=== PATIENT | female | born 1955 | race Caucasian/White ===

== ENCOUNTER 2017-03-25 16:16 | Inpatient (IN) | payer MEDICAID ==
[2017-03-25] MEDS ORDERED: [UNRECOGNIZED DRUG - OTHER] PO PRN (18:29)
[2017-03-25] MEDS ORDERED: XYLITOL PO PRN (18:29)
[2017-03-25] MEDS ORDERED: Mirtazapine 15 MG Tab PO PRN (18:29)
[2017-03-25] MEDS ORDERED: Acetaminophen 325 MG Tab PO PRN (18:41)
[2017-03-25] MEDS ORDERED: Polyethylene Glycol 3350 Powder 510 GM Bot PO PRN (18:41)
[2017-03-25] MEDS ORDERED: OLANZAPINE 10 MG PO SCH (20:00)
[2017-03-25] MEDS ORDERED: OLANZapine 5 MG Tab PO SCH (20:00)
[2017-03-25] MEDS ORDERED: Latanoprost 0.005% Ophth Soln 2.5 ML Bottle EYEBOTH SCH (20:00)
[2017-03-25] MEDS: traMADol 50 MG Tab PO PRN (21:09)
[2017-03-25] MEDS: Methocarbamol 750 MG Tab PO SCH (22:00)
[2017-03-25] MEDS: Dorzolamide/Timolol 2%-0.5% Ophth Soln 10 ML Bottle EYEBOTH SCH (22:00)
[2017-03-25] MEDS: ClonazePAM 0.5 MG Tab PO PRN (22:00)
[2017-03-26] MEDS: Insulin Glargine,Human Rec. Analog 100 Units/ML 3 ML Pen SUBCUT SCH ×2 (00:01→21:53)
[2017-03-26] MEDS: Levothyroxine 112 MCG Tab PO SCH (07:31)
[2017-03-26] MEDS: EXENATIDE 10 MCG SQ SCH ×2 (07:37→20:36)
[2017-03-26] MEDS: Venlafaxine 150 MG Cap.ER PO SCH (08:29)
[2017-03-26] MEDS: Dorzolamide/Timolol 2%-0.5% Ophth Soln 10 ML Bottle EYEBOTH SCH ×2 (08:29→20:38)
[2017-03-26] MEDS: Methocarbamol 750 MG Tab PO SCH ×3 (08:30→20:36)
[2017-03-26] MEDS: busPIRone 10 MG Tab PO SCH ×2 (08:30→20:43)
[2017-03-26] MEDS: Valsartan 160 MG Tab PO SCH (08:30)
[2017-03-26] MEDS: ClonazePAM 0.5 MG Tab PO PRN (08:31)
[2017-03-26] MEDS: traMADol 50 MG Tab PO PRN ×3 (08:35→20:36)
--- NOTE | 2017-03-26 08:45 | HP ---
HISTORY OF PRESENT ILLNESS: The patient was transferred here for rehab after hip surgery for avascular necrosis. She had her surgery done at [place] last week. She is doing quite well and is going to be placed on swing bed with followup by her primary care physician, Dr. Franklin. The patient has no complaints at this time. She does have a past medical history of avascular necrosis and depression issues, for which she is well controlled. AODM, elevated lipids, glaucoma, and hypertension. She is currently anticoagulated after her hip surgery. SOCIAL HISTORY: She is a recent nonsmoker, having stopped before her surgery. She lives at home with her mother and has very good social support. REVIEW OF SYSTEMS: CONSTITUTIONAL: The patient denies any fever, weight loss, or fatigue. EYES: No vision changes. ENT: No nose congestion, sore throat, or ear pain. CV: No chest pain or palpitations. RESPIRATORY: No cough, shortness of breath, or wheezing. GI: No nausea, vomiting, diarrhea, constipation, heartburn, or rectal bleeding. : No dysuria. MUSCULOSKELETAL: No joint discomfort except for her recent right hip where she had her surgery for avascular necrosis. No inflamed joints. No limitations of motion other than her right hip. SKIN: No rashes or sores. She does have toenail fungus, for which she is using topical Vicks. NEURO: She has no complaints of numbness, weakness, or headaches. PSYCH: She does have a history of depression, which is under control at this time. PHYSICAL EXAMINATION: GENERAL: Reveals a well-developed, well-nourished female. She is alert, she is oriented x3. She is in no acute distress. VITAL SIGNS: Upon admission show temperature 36.6, pulse ox of 95, pulse rate of 81, blood pressure 151/73. ASSESSMENT: Right hip replacement, status post avascular necrosis; history of controlled diabetes type 2; history of elevated cholesterol; history of elevated blood pressure; history of depression; and history of glaucoma. PLAN: The patient is admitted to the hospital for rehab after her hip surgery. She will be placed on swing bed and when she is able to manage on her own, she can be discharged to home where she does have good social followup. We will relook into some basic labs on her including a TSH and A1c, CBC, CMP, and magnesium as we do not have any recent lab work in her files. DIANNE/ANNA
[2017-03-26] MEDS ORDERED: Acetaminophen 325 MG Tab PO PRN (09:19)
[2017-03-26] MEDS ORDERED: Acetaminophen 650 MG Tab.ER PO PRN (09:20)
[2017-03-26] MEDS ORDERED: Latanoprost 0.005% Ophth Soln 2.5 ML Bottle EYEBOTH SCH (09:33)
[2017-03-26] MEDS: METFORMIN PO SCH (14:59)
[2017-03-26] MEDS: SAXAGLIPTIN PO SCH (14:59)
[2017-03-26] MEDS: Tuberculin, PPD 5 Units/0.1 ML 1 ML MDV IDERM ONE ×2 (15:08)
[2017-03-26] MEDS: Warfarin 5 MG Tab PO SCH (18:09)
[2017-03-26] MEDS: Latanoprost 0.005% Ophth Soln 2.5 ML Bottle EYEBOTH SCH (20:35)
[2017-03-26] MEDS: OLANZAPINE 2.5 MG PO SCH (20:39)
[2017-03-26] MEDS: OLANZAPINE 10MG TABLET PO SCH (20:39)
[2017-03-27] MEDS: EXENATIDE 10 MCG SQ SCH ×3 (07:30→17:10)
[2017-03-27] MEDS: traMADol 50 MG Tab PO PRN ×2 (07:51→21:15)
[2017-03-27] MEDS: busPIRone 10 MG Tab PO SCH ×2 (07:52→20:30)
[2017-03-27] MEDS: Dorzolamide/Timolol 2%-0.5% Ophth Soln 10 ML Bottle EYEBOTH SCH ×2 (07:53→20:31)
[2017-03-27] MEDS: Valsartan 160 MG Tab PO SCH (07:54)
[2017-03-27] MEDS: Venlafaxine 150 MG Cap.ER PO SCH (07:56)
[2017-03-27] MEDS: Methocarbamol 750 MG Tab PO SCH ×3 (07:57→20:29)
[2017-03-27] MEDS: SAXAGLIPTIN PO SCH ×3 (07:59→17:10)
[2017-03-27] MEDS: METFORMIN PO SCH ×3 (07:59→17:10)
[2017-03-27] MEDS: ClonazePAM 0.5 MG Tab PO PRN ×2 (08:49→21:22)
[2017-03-27] MEDS: Warfarin 5 MG Tab PO SCH (18:20)
[2017-03-27] MEDS: OLANZAPINE 10MG TABLET PO SCH (20:30)
[2017-03-27] MEDS: OLANZAPINE 2.5 MG PO SCH (20:30)
[2017-03-27] MEDS: Latanoprost 0.005% Ophth Soln 2.5 ML Bottle EYEBOTH SCH (20:31)
[2017-03-28] MEDS: EXENATIDE 10 MCG SQ SCH ×5 (07:30→17:41)
[2017-03-28] MEDS: traMADol 50 MG Tab PO PRN ×2 (07:46→20:55)
[2017-03-28] MEDS: ClonazePAM 0.5 MG Tab PO PRN ×2 (07:46→20:51)
[2017-03-28] MEDS: Levothyroxine 112 MCG Tab PO SCH ×2 (07:50)
[2017-03-28] MEDS: busPIRone 10 MG Tab PO SCH ×2 (07:51→20:57)
[2017-03-28] MEDS: Dorzolamide/Timolol 2%-0.5% Ophth Soln 10 ML Bottle EYEBOTH SCH ×2 (07:51→20:57)
[2017-03-28] MEDS: Valsartan 160 MG Tab PO SCH (07:52)
[2017-03-28] MEDS: Venlafaxine 150 MG Cap.ER PO SCH (07:52)
[2017-03-28] MEDS: Methocarbamol 750 MG Tab PO SCH ×3 (07:53→20:38)
[2017-03-28] MEDS: Insulin Glargine,Human Rec. Analog 100 Units/ML 3 ML Pen SUBCUT SCH ×2 (09:12→20:58)
[2017-03-28] MEDS: Warfarin 5 MG Tab PO SCH (17:28)
[2017-03-28] MEDS: SAXAGLIPTIN PO SCH (17:29)
[2017-03-28] MEDS: METFORMIN PO SCH (17:29)
[2017-03-28] MEDS: OLANZAPINE 2.5 MG PO SCH (20:53)
[2017-03-28] MEDS: OLANZAPINE 10MG TABLET PO SCH (20:53)
[2017-03-28] MEDS: Latanoprost 0.005% Ophth Soln 2.5 ML Bottle EYEBOTH SCH (20:57)
[2017-03-29] MEDS: Levothyroxine 112 MCG Tab PO SCH (06:41)
[2017-03-29] MEDS: EXENATIDE 10 MCG SQ SCH (07:31)
[2017-03-29] MEDS: traMADol 50 MG Tab PO PRN (08:19)
[2017-03-29] MEDS: Valsartan 160 MG Tab PO SCH (08:21)
[2017-03-29] MEDS: Methocarbamol 750 MG Tab PO SCH (08:21)
[2017-03-29] MEDS: Venlafaxine 150 MG Cap.ER PO SCH (08:21)
[2017-03-29] MEDS: busPIRone 10 MG Tab PO SCH (08:23)
[2017-03-29] MEDS: Dorzolamide/Timolol 2%-0.5% Ophth Soln 10 ML Bottle EYEBOTH SCH (08:24)
[2017-03-29 08:25] VITALS: BP 141/81
[2017-03-29] MEDS: ClonazePAM 0.5 MG Tab PO PRN (08:25)
--- NOTE | 2017-04-05 09:39 | PCM.DCSUM1 ---
Discharge Summary - Discharge Data Discharge Date: 03/29/17 Discharge Disposition: Home, Self-Care 01 Condition: Good - Patient Summary/Data Consults: Consultations 03/25/17 18:19 OT Evaluation and Treatment [CONS] Routine Please Evaluate and Treat. OT Reason for Consult: Strengthening This query below is only for informational purposes and is not editable. PT Evaluation and Treatment [CONS] Routine Please Evaluate and Treat. PT Reason for Consult: Post op Ortho Surgery This query below is only for informational purposes and is not editable. - Patient Instructions Diet: Usual Diet as Tolerated Activity: As Tolerated Notify Provider of: Fever, Increased Pain, Swelling and Redness, Drainage, Nausea and/or Vomiting - Discharge Plan Home Medications: Home Meds Exenatide [Byetta] 10 mcg SQ BID 03/25/17 [History] Insulin Glarg,Human.Rec.Analog [Lantus Solostar] 30 units INJECT BEDTIME [History] Latanoprost 2.5 ml OP BEDTIME 03/25/17 [History] Levothyroxine 112 mcg PO DAILY 03/25/17 [History] Lovastatin 20 mg PO DAILY 03/25/17 [History] Methocarbamol 750 mg PO TID 03/25/17 [History] Mirtazapine 7.5 mg PO BEDTIME PRN 03/25/17 [History] OLANZapine [Olanzapine] 2.5 mg PO BEDTIME 03/25/17 [History] OLANZapine [Olanzapine] 10 mg PO BEDTIME 03/25/17 [History] Saxagliptin HCl/Metformin HCl [Kombiglyze XR 5-1,000 MG] 1 tab PO DAILY [History] Valsartan [Diovan] 160 mg PO DAILY 03/25/17 [History] Venlafaxine [Effexor XR] 150 mg PO DAILY 03/25/17 [History] Xylitol/Antiseptic Combo No.6 [Salese Soft Lozenge] 1 tab PO TID PRN 03/25/17 [ History] Acetaminophen [Tylenol Arthritis Pain] 650 mg PO Q6H PRN #0 tab.er 03/29/17 [Rx] ClonazePAM [KlonoPIN] 0.5 mg PO TID PRN #0 tablet 03/29/17 [Rx] Dorzolamide/Timolol [Cosopt 2%-0.5% Ophth Soln] 0 - 1 ml EYEBOTH BID bottle [Rx] Non-Formulary Medication [NF Drug] 1 each PO BEDTIME each 03/29/17 [Rx] Non-Formulary Medication [NF Drug] 1 each PO BEDTIME each 03/29/17 [Rx] Warfarin [Coumadin] 5 mg PO DAILY@1800 tablet 03/29/17 [Rx] busPIRone [Buspar] 10 mg PO DAILY tablet 03/29/17 [Rx] busPIRone [Buspar] 20 mg PO BEDTIME tablet 03/29/17 [Rx] - Discharge Summary/Plan Comment DC Time >30 min.: Yes Discharge Summary/Plan Comment: Counseled on f/u with Orthopedics and clinic. Discussed monitoring for signs of infection or other concerns. Continue with PT/OT outpatient. F/u as directed. - Patient Data Vitals - Most Recent: Last Vital Signs Temp 36.9 C 03/29/17 10:00 Pulse 78 03/29/17 10:00 Resp 16 03/29/17 10:00 BP 141/81 H 03/29/17 10:00 Pulse Ox 97 03/29/17 10:00 Weight - Most Recent: 90.718 kg Med Orders - Current: Current Medications Discontinued Medications Acetaminophen (Tylenol) 650 mg PO Q4H PRN PRN Reason: Pain Last Admin: 03/26/17 05:51 Dose: 650 mg Acetaminophen (Tylenol Arthritis Pain) 650 mg PO Q6H PRN PRN Reason: MILD PAIN Buspirone HCl (Buspar) 10 mg PO DAILY COUNTS INCLUDE 234 BEDS AT THE [facility] Last Admin: 03/29/17 08:23 Dose: 10 mg Buspirone HCl (Buspar) 20 mg PO BEDTIME VINNY Last Admin: 03/28/17 20:57 Dose: 20 mg Clonazepam (Klonopin) 0.5 mg PO TID PRN PRN Reason: Anxiety Last Admin: 03/29/17 08:25 Dose: 0.5 mg Dorzolamide/Timolol (Cosopt 2%-0.5% Ophth Soln) 0 ml EYEBOTH BID COUNTS INCLUDE 234 BEDS AT THE [facility] Last Admin: 03/26/17 08:29 Dose: 1 drop Dorzolamide/Timolol (Cosopt 2%-0.5% Ophth Soln) 0 - 1 ml EYEBOTH BID VINNY Last Admin: 03/29/17 08:24 Dose: 1 drop Insulin Glargine (Lantus Solostar) 30 units SUBCUT BEDTIME VINNY Last Admin: 03/28/17 20:58 Dose: 22 units Latanoprost (Xalatan 0.005% Ophth Soln) 2.5 ml EYEBOTH BEDTIME VINNY Last Admin: 03/25/17 22:00 Dose: 1 drop Latanoprost (Xalatan 0.005% Ophth Soln) 0 - 1 ml EYEBOTH BEDTIME VINNY Latanoprost (Xalatan 0.005% Ophth Soln) 0.05 ml EYEBOTH BEDTIME VINNY Last Admin: 03/28/17 20:57 Dose: 1 drop Levothyroxine Sodium (Levothyroxine) 112 mcg PO DAILY COUNTS INCLUDE 234 BEDS AT THE [facility] Last Admin: 03/28/17 07:50 Dose: 112 mcg Levothyroxine Sodium (Levothyroxine) 112 mcg PO ACBREAKFAST COUNTS INCLUDE 234 BEDS AT THE [facility] Last Admin: 03/29/17 06:41 Dose: 112 mcg Lovastatin (Mevacor) 20 mg PO BEDTIME VINNY Last Admin: 03/28/17 20:52 Dose: 20 mg Methocarbamol (Robaxin) 750 mg PO TID COUNTS INCLUDE 234 BEDS AT THE [facility] Last Admin: 03/29/17 08:21 Dose: 750 mg Mirtazapine (Remeron) 7.5 mg PO BEDTIME PRN PRN Reason: Insomnia Exenatide [Byetta] (10mcg) 10 mcg SQ BID COUNTS INCLUDE 234 BEDS AT THE [facility] Last Admin: 03/28/17 17:28 Dose: 10 mcg Non-Formulary Medication (Olanzapine [Olanzapine]) 10 mg PO BEDTIME COUNTS INCLUDE 234 BEDS AT THE [facility] Saxagliptin /Metformin [ Kombiglyze Xr] 5mg/1 ,000mg 1 tab PO DAILY VINNY Last Admin: 03/27/17 08:03 Dose: Not Given Olanzapine 10mg (Tablet) 1 each PO BEDTIME VINNY Last Admin: 03/28/17 20:53 Dose: 1 each Olanzapine 2.5mg (Tablets) 1 each PO BEDTIME VINNY Last Admin: 03/28/17 20:53 Dose: 1 each Exenatide [Byetta] (10mcg) 10 mcg SQ DAILY@0730,1700 COUNTS INCLUDE 234 BEDS AT THE [facility] Last Admin: 03/29/17 07:31 Dose: 10 mcg Saxagliptin /Metformin [ Kombiglyze Xr] 5mg/1 ,000mg 1 tab PO DAILY@1700 COUNTS INCLUDE 234 BEDS AT THE [facility] Last Admin: 03/28/17 17:29 Dose: 1 tab Olanzapine (Zyprexa) 12.5 mg PO BEDTIME COUNTS INCLUDE 234 BEDS AT THE [facility] Last Admin: 03/25/17 22:00 Dose: 12.5 mg Polyethylene Glycol (Miralax) 17 gm PO DAILY PRN PRN Reason: Constipation Senna/Docusate Sodium (Senna Plus) 2 tab PO BID PRN PRN Reason: Constipation Last Admin: 03/27/17 21:20 Dose: 2 tab Tramadol HCl (Ultram) 50 mg PO Q4H PRN PRN Reason: Pain Last Admin: 03/29/17 08:19 Dose: 50 mg Tuberculin PPD (Aplisol) 5 unit IDERM ONETIME ONE Stop: 03/25/17 18:20 Last Admin: 03/26/17 15:08 Dose: 5 unit Valsartan (Diovan) 160 mg PO DAILY COUNTS INCLUDE 234 BEDS AT THE [facility] Last Admin: 03/29/17 08:21 Dose: 160 mg Venlafaxine HCl (Effexor Xr) 150 mg PO DAILY COUNTS INCLUDE 234 BEDS AT THE [facility] Last Admin: 03/29/17 08:21 Dose: 150 mg Warfarin Sodium (Coumadin) 5 mg PO DAILY@1800 COUNTS INCLUDE 234 BEDS AT THE [facility] Last Admin: 03/28/17 17:28 Dose: 5 mg *Q Meaningful Use (DIS) - VTE *Q VTE Criteria *Q: - Stroke *Q Stroke Criteria *Q: - AMI *Q AMI Criteria *Q:
== END 2017-03-29 14:00 | disposition home or self-care (01) | DRG 561 ==
LOC: UNDOADMIN 16:16 → LB.MS 16:16 → UNDOADMIN 17:22 → LB.MS 17:22
PROVIDERS: ADMIT Internal Medicine; ATTEND Internal Medicine
DX: Z47.1 Aftercare following joint replacement surgery (principal); Z96.651 Presence of right artificial knee joint; Z98.890 Other specified postprocedural states; I10 Essential (primary) hypertension; E11.8 Type 2 diabetes mellitus with unspecified complications; Z79.4 Long term (current) use of insulin; H40.9 Unspecified glaucoma; E11.9 Type 2 diabetes mellitus without complications; E03.9 Hypothyroidism, unspecified; Z87.891 Personal history of nicotine dependence; B35.1 Tinea unguium; Z79.01 Long term (current) use of anticoagulants; Z88.8 Allergy status to other drugs, medicaments and biological substances; F31.9 Bipolar disorder, unspecified
CPT/HCPCS: 36415; 82962; 83036; 83735; 84443; 85610; 86580; 97110-GP; 97116-GP; 97161-GP; 97165-GO; 97530-GO; 97535-GO; A9270-GY

== ENCOUNTER 2017-12-19 07:13 | Day surgery (SDC) | payer MEDICAID ==
[~2017-12-19 07:13] MED LIST: Metoclopramide 10 MG/2 ML SDV IV PRN; Sodium Chloride 0.9% 1,000 ML IV SCH; Sodium Chloride 0.9% 10 ML Syringe FLUSH PRN
[2017-12-19] MEDS ORDERED: Midazolam 1 MG/ML 5 ML SDV ONE (09:15)
[2017-12-19] MEDS ORDERED: Propofol 200 MG/20 ML SDV ONE (09:15)
[2017-12-19 10:37] VITALS: BP 186/90
--- NOTE | 2017-12-19 11:38 | OR ---
DATE OF OPERATION: 12/19/2017 PREOPERATIVE DIAGNOSIS: Screening colonoscopy. POSTOPERATIVE DIAGNOSIS: Screening colonoscopy. PROCEDURE: Colonoscopy with multiple polypectomies. ESTIMATED BLOOD LOSS: Minimal. COMPLICATIONS: None. ANESTHESIA: MAC. INDICATIONS FOR THE PROCEDURE: The patient is a 62-year-old female, who has never had a colonoscopy. She denies any symptoms. No family history. She is here today for screening colonoscopy. DESCRIPTION OF PROCEDURE: Informed consent was obtained from the patient. The patient was taken to the operating room, placed on table in left lateral decubitus position. Monitored anesthesia care was administered. On digital rectal exam, no masses were palpated. Colonoscope was then advanced through the anus, directed toward the cecum. I did reach the cecum, identified by ileocecal valve and appendiceal orifice. Colonoscope was then slowly withdrawn. Multiple polyps were identified. A small polyp in the ascending colon was removed in piecemeal fashion with hot forceps polypectomy. A small transverse colon polyp was also removed with hot forceps polypectomy. Additional polyp in the sigmoid was removed with snare cautery polypectomy. This was slightly pedunculated. Two sessile polyps were removed at 20 cm with hot forceps polypectomy. Small polyp at 15 cm was removed with snare cautery polypectomy. Retroflexion was performed in the rectum, which was unremarkable. Colonoscope was then removed. FINDINGS: 6 polyps were removed on colonoscopy today. We will follow up biopsy results. RECOMMENDATIONS: Would recommend repeat colonoscopy in 3 years due to number of polyps. YESI/ANNA /[id number]
== END 2017-12-19 11:45 | disposition home or self-care (01) ==
LOC: LB.SDS 07:13
PROVIDERS: ATTEND Surgery
DX: Z12.11 Encounter for screening for malignant neoplasm of colon (principal); D12.2 Benign neoplasm of ascending colon; D12.3 Benign neoplasm of transverse colon; D12.5 Benign neoplasm of sigmoid colon; Z88.8 Allergy status to other drugs, medicaments and biological substances; Z79.82 Long term (current) use of aspirin; Z79.899 Other long term (current) drug therapy
CPT/HCPCS: 45384; 45385; 82962; 88305; J2250; J2704; J7040

== ENCOUNTER 2020-04-13 12:13 | Emergency (ER) | payer MEDICAID ==
[2020-04-13 12:25] VITALS: BP 184/99; PULSE 92
[2020-04-13] MEDS ORDERED: Sodium Chloride 0.9% 10 ML Syringe FLUSH PRN (12:30)
--- NOTE | 2020-04-13 13:20 | EDM.PDOC ---
ED HPI GENERAL MEDICAL PROBLEM - General Chief Complaint: General Stated Complaint: DONALD Time Seen by Provider: 04/13/20 12:15 Source of Information: Reports: Patient History Limitations: Reports: No Limitations - History of Present Illness INITIAL COMMENTS - FREE TEXT/NARRATIVE: This patient presents to the ED in the care of her son for evaluation of "shakiness." She noted tremors in her upper extremities about 30" prior to admission. The tremors are limited to UE only and stop completely when her arms are at rest. The is the first time she has had anything like this. She does have a history of diabetes and noted her blood sugar to be 130 at home. She denies headache, difficulty breathing, chest pain, abdominal pain along with the tremors. She denies recent illnesses including fever, shortness of breath, cough, or sore throat. Onset: Sudden Onset Date: 04/13/20 Onset Time: 11:30 Duration: Constant (when moving arms or holding arms outstretched; gone completely at rest) Location: Reports: Upper Extremity, Left, Upper Extremity, Right Quality: Reports: Other (denies pain) Improves with: Reports: None Worsens with: Reports: None Associated Symptoms: Denies: Chest Pain, Cough, Diaphoresis, Fever/Chills, Headaches, Loss of Appetite, Nausea/Vomiting, Shortness of Breath, Syncope, Weakness - Related Data Allergies Allergy/AdvReac Type Severity Reaction Status Date / Time aripiprazole [From Abilify] Allergy Dizziness Verified 04/13/20 12:21 metaxalone [From Skelaxin] Allergy Confusion Verified 04/13/20 12:21 Home Meds: Home Meds Exenatide [Byetta] 10 mcg SQ BIDMEALS 03/25/17 [History] Insulin Glarg,Human.Rec.Analog [Lantus Solostar] 20 units INJECT BEDTIME [History] Levothyroxine 112 mcg PO DAILY 03/25/17 [History] Lovastatin 20 mg PO BEDTIME 03/25/17 [History] OLANZapine [Olanzapine] 2.5 mg PO BEDTIME 03/25/17 [History] OLANZapine [Olanzapine] 10 mg PO BEDTIME 03/25/17 [History] Saxagliptin HCl/Metformin HCl [Kombiglyze XR 5-1,000 MG] 1 tab PO DAILY [History] Venlafaxine [Effexor XR] 150 mg PO DAILY 03/25/17 [History] ClonazePAM [KlonoPIN] 0.5 mg PO TID PRN #0 tablet 03/29/17 [Rx] busPIRone [Buspar] 10 mg PO DAILY tablet 03/29/17 [Rx] busPIRone [Buspar] 20 mg PO BEDTIME tablet 03/29/17 [Rx] Aspirin [Ecotrin] 81 mg PO BEDTIME 12/19/17 [History] Brimonidine Tartrate [Brimonidine Tartrate 0.2% Ophth Soln] 1 drop EYEBOTH TID 12/19/17 [History] Dorzolamide/Timolol [Cosopt 2%-0.5% Ophth Soln] 1 drop EYEBOTH BID 12/19/17 [ History] Latanoprost 1 drop EYEBOTH QPM 12/19/17 [History] methocarbamoL [Methocarbamol] 750 mg PO TID PRN 12/19/17 [History] traMADol [Ultram] 50 mg PO Q4H PRN 12/19/17 [History] Losartan Potassium 100 mg PO DAILY 11/13/18 [History] hydroCHLOROthiazide [Hydrochlorothiazide] 25 mg PO DAILY 11/13/18 [History] Acetaminophen [Acetaminophen 8 Hour] 650 mg PO Q8HR PRN 11/20/18 [History] Past Medical History HEENT History: Reports: Glaucoma, Impaired Vision Cardiovascular History: Reports: High Cholesterol, Hypertension Respiratory History: Reports: None Gastrointestinal History: Reports: None Genitourinary History: Reports: None DIRECTOR MEETINGS History: Reports: Other DIRECTOR MEETINGS History: parity: 2 , gravity : 2 Musculoskeletal History: Reports: Back Pain, Chronic Neurological History: Reports: None, Other (See Below) Other Neuro History: 1975 Psychiatric History: Reports: Anxiety, Bipolar, Depression Endocrine/Metabolic History: Reports: Diabetes, Type II, Hypothyroidism Hematologic History: Reports: None Oncologic (Cancer) History: Reports: None Dermatologic History: Reports: Other (See Below) Other Dermatologic History: toenail fungus - Infectious Disease History Infectious Disease History: Reports: Chicken Pox, Measles - Past Surgical History HEENT Surgical History: Reports: Laser Surgery Cardiovascular Surgical History: Reports: None Respiratory Surgical History: Reports: None GI Surgical History: Reports: Colonoscopy Endocrine Surgical History: Reports: Other (See Below) Other Endocrine Surgeries/Procedures: radioactive medication fro thyroid Musculoskeletal Surgical History: Reports: Hip Replacement Other Musculoskeletal Surgeries/Procedures:: recent Right hip replacement Social & Family History - Family History Family Medical History: Noncontributory HEENT: Reports: Sinusitis, Other (See Below) Other HEENT Family History: father Cardiac: Reports: [place] Other Cardiac Family History: father at 59 of an [place] Musculoskeletal: Reports: Back pain, Chronic, Other (See Below) Other Musculoskeletal Family History: mother Psychiatric: Reports: Other (See Below) Other Psychiatric Family History: sister Dermatologic: Reports: None - Caffeine Use Caffeine Use: Reports: None ED ROS GENERAL - Review of Systems Review Of Systems: Comprehensive ROS is negative, except as noted in HPI. ED EXAM, GENERAL - Physical Exam Exam: See Below Exam Limited By: No Limitations General Appearance: Alert, No Apparent Distress, Anxious Eye Exam: Bilateral Eye: PERRL Ears: Normal External Exam Nose: Normal Inspection Throat/Mouth: Normal Inspection, Normal Oropharynx Head: Atraumatic, Normocephalic Neck: Normal Inspection, Supple, Full Range of Motion Respiratory/Chest: No Respiratory Distress, Lungs Clear, Normal Breath Sounds, No Accessory Muscle Use Cardiovascular: Normal Peripheral Pulses, Regular Rate, Rhythm GI/Abdominal: Normal Bowel Sounds, Soft, Non-Tender, No Distention Extremities: Normal Capillary Refill, Other (rythmic movements of both arms when held up or muscles engaged. No movements noted when arms at rest. Movements cannot be extinguished by holding.) Neurological: Alert, Oriented, Normal Cognition, Normal Reflexes, No Motor/ Sensory Deficits, Slow to Respond Skin Exam: Warm, Dry, Intact Course - Vital Signs Last Recorded V/S: Last Vital Signs Temp 36.7 C 04/13/20 12:21 Pulse 92 04/13/20 12:21 Resp 16 04/13/20 12:21 BP 184/99 H 04/13/20 12:21 Pulse Ox 99 04/13/20 12:21 - Orders/Labs/Meds Orders: Active Orders 24 hr Category Date Time Status Sodium Chloride 0.9% [Saline Flush] Med 04/13/20 12:30 Ordered 10 ml FLUSH ASDIRECTED PRN Saline Lock Insert [OM.PC] Stat Oth 04/13/20 12:30 Ordered Medication Orders Sodium Chloride (Saline Flush) 10 ml FLUSH ASDIRECTED PRN PRN Reason: Keep Vein Open Labs: Laboratory Tests 04/13/20 04/13/20 04/13/20 Range/Units 11:20 12:35 12:35 WBC 9.4 (4.0-11.0) K/uL RBC 5.16 (3.80-5.80) M/uL Hgb 14.6 (11.5-16.5) g/dL Hct 43.6 (37.0-47.0) % MCV 85 (76-96) fL MCH 28.3 (27.0-32.0) pg MCHC 33.5 (31.0-35.0) g/dL RDW 15.2 (11.0-16.0) % Plt Count 243 D (150-500) K/uL MPV 11.3 H (6.0-10.0) fL Neut % (Auto) 76.7 H (45.0-70.0) % Lymph % (Auto) 14.6 L (20.0-40.0) % Wirt % (Auto) 8.5 (3.0-10.0) % Eos % (Auto) 0.2 L (1.0-5.0) % Baso % (Auto) 0.0 (0.0-0.5) % Neut # (Auto) 7.24 (2.00-7.50) K/uL Lymph # (Auto) 1.38 L (1.50-4.00) K/uL Wirt # (Auto) 0.80 (0.20-0.80) K/uL Eos # (Auto) 0.02 L (0.04-0.40) K/uL Baso # (Auto) 0.00 L (0.02-0.10) K/uL Sodium 143 (136-145) mmol/L Potassium 3.5 D (3.5-5.1) mmol/L Chloride 104 (98-107) mmol/L Carbon Dioxide 26.8 D (21.0-32.0) mmol/L Anion Gap 15.7 H (5.0-15.0) mmol/L BUN 10 D (8-26) mg/dL Creatinine 0.72 (0.55-1.02) mg/dL Est Cr Clr Drug Dosing TNP Estimated GFR (MDRD) > 60 (>60) MLS/MIN BUN/Creatinine Ratio 13.9 (6-25) Glucose 145 H D (74-100) mg/dL POC Glucose 138 H (74-110) mg/dL Calcium 9.5 (8.5-10.1) mg/dL Meds: Medications Generic Name Dose Route Start Last Admin Trade Name Freq PRN Reason Stop Dose Admin Sodium Chloride 10 ml 04/13/20 12:30 Saline Flush FLUSH ASDIRECTED PRN Keep Vein Open - Re-Assessments/Exams Free Text/Narrative Re-Assessment/Exam: 04/13/20 13:22 This patient presents with "shakiness." History and clinical findings are most consistent with a diagnosis of essential tremors. There are no tremors noted at rest. Labs obtained did not identify an electrolyte imbalance that could be responsible for these. At this time her physical and neurological exam are reassuring and the tremors do not seem to be interfering with her activities. She will be discharged to home with instructions to make an appointment for reevaluation by her PCP in 48 hours. She should return to the ED in the meantime if she develops any further problems or concerns. 04/13/20 13:24 Departure - Departure Time of Disposition: 13:30 Disposition: DC/Tfer to Court of Law En 21 Condition: Good Clinical Impression: Tremor, essential - Discharge Information *PRESCRIPTION DRUG MONITORING PROGRAM REVIEWED*: No Instructions: Essential Tremor Referrals: PCP,None [Primary Care Provider] - Forms: ED Department Discharge Additional Instructions: Continue all regular medications as previously prescribed. Drink plenty of fluids and get plenty of rest. Diet and activity as tolerated. Follow up in clinic with Dr. Franklin on April 15. Call with any questions. Sepsis Event Note - Evaluation Sepsis Screening Result: No Definite Risk - Focused Exam Vital Signs: Vital Signs Temp Pulse Resp BP Pulse Ox 04/13/20 12:21 36.7 C 92 16 184/99 H 99 Date Exam was Performed: 04/13/20 Time Exam was Performed: 13:14 - My Orders Last 24 Hours: My Active Orders 04/13/20 12:30 Sodium Chloride 0.9% [Saline Flush] 10 ml FLUSH ASDIRECTED PRN Saline Lock Insert [OM.PC] Stat - Assessment/Plan Last 24 Hours: My Active Orders 04/13/20 12:30 Sodium Chloride 0.9% [Saline Flush] 10 ml FLUSH ASDIRECTED PRN Saline Lock Insert [OM.PC] Stat
== END 2020-04-13 13:15 | disposition home or self-care (01) ==
LOC: LB.ED 12:13
DX: G25.0 Essential tremor (principal); I10 Essential (primary) hypertension; E78.00 Pure hypercholesterolemia, unspecified; E11.9 Type 2 diabetes mellitus without complications; E03.9 Hypothyroidism, unspecified; F41.9 Anxiety disorder, unspecified; F31.9 Bipolar disorder, unspecified; Z88.8 Allergy status to other drugs, medicaments and biological substances; Z88.6 Allergy status to analgesic agent; Z79.899 Other long term (current) drug therapy; Z79.4 Long term (current) use of insulin
CPT/HCPCS: 36415; 80048; 82962; 85025; 99283

== ENCOUNTER 2020-04-19 12:58 | Emergency (ER) | payer MEDICAID ==
--- NOTE | 2020-04-19 13:36 | EDM.PDOC ---
ED HPI GENERAL MEDICAL PROBLEM - General Chief Complaint: General Stated Complaint: SOB SHAKING OF ARMS Time Seen by Provider: 04/19/20 13:20 Source of Information: Reports: Patient, RN Notes Reviewed, Other (clinic notes) History Limitations: Reports: No Limitations - History of Present Illness INITIAL COMMENTS - FREE TEXT/NARRATIVE: This patient presents to the ED for evaluation of shakiness. She was seen in the ED last week and diagnosed with essential tremors. She was seen in the clinic on 04/15 for follow up and was told that she would be scheduled for evaluation in the neurology clinic at [facility]. The patient states that she was not told anything and did not know what to do. She is here today because she is also having trouble breathing. The patient is very anxious with tremors with movement only. She does not have any tremors at rest. She denies any other symptoms and states that she "just can't catch her breath" and that this started during the night. She denies other concerns or complaints. Onset: Today, Sudden Onset Time: 05:00 Duration: Constant - Related Data Allergies Allergy/AdvReac Type Severity Reaction Status Date / Time aripiprazole [From Abilify] Allergy Dizziness Verified 04/13/20 12:21 metaxalone [From Skelaxin] Allergy Confusion Verified 04/13/20 12:21 Home Meds: Home Meds Exenatide [Byetta] 10 mcg SQ BIDMEALS 03/25/17 [History] Insulin Glarg,Human.Rec.Analog [Lantus Solostar] 20 units INJECT BEDTIME [History] Levothyroxine 112 mcg PO DAILY 03/25/17 [History] Lovastatin 20 mg PO BEDTIME 03/25/17 [History] OLANZapine [Olanzapine] 2.5 mg PO BEDTIME 03/25/17 [History] OLANZapine [Olanzapine] 10 mg PO BEDTIME 03/25/17 [History] Saxagliptin HCl/Metformin HCl [Kombiglyze XR 5-1,000 MG] 1 tab PO DAILY [History] Venlafaxine [Effexor XR] 150 mg PO DAILY 03/25/17 [History] ClonazePAM [KlonoPIN] 0.5 mg PO TID PRN #0 tablet 03/29/17 [Rx] busPIRone [Buspar] 10 mg PO DAILY tablet 03/29/17 [Rx] busPIRone [Buspar] 20 mg PO BEDTIME tablet 03/29/17 [Rx] Aspirin [Ecotrin] 81 mg PO BEDTIME 12/19/17 [History] Brimonidine Tartrate [Brimonidine Tartrate 0.2% Ophth Soln] 1 drop EYEBOTH TID 12/19/17 [History] Dorzolamide/Timolol [Cosopt 2%-0.5% Ophth Soln] 1 drop EYEBOTH BID 12/19/17 [ History] Latanoprost 1 drop EYEBOTH QPM 12/19/17 [History] methocarbamoL [Methocarbamol] 750 mg PO TID PRN 12/19/17 [History] traMADol [Ultram] 50 mg PO Q4H PRN 12/19/17 [History] Losartan Potassium 100 mg PO DAILY 11/13/18 [History] hydroCHLOROthiazide [Hydrochlorothiazide] 25 mg PO DAILY 11/13/18 [History] Acetaminophen [Acetaminophen 8 Hour] 650 mg PO Q8HR PRN 11/20/18 [History] Past Medical History HEENT History: Reports: Glaucoma, Impaired Vision Cardiovascular History: Reports: High Cholesterol, Hypertension Respiratory History: Reports: None Gastrointestinal History: Reports: None Genitourinary History: Reports: None [employer]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 , gravity : 2 Musculoskeletal History: Reports: Back Pain, Chronic Neurological History: Reports: None, Other (See Below) Other Neuro History: 1975 Psychiatric History: Reports: Anxiety, Bipolar, Depression Endocrine/Metabolic History: Reports: Diabetes, Type II, Hypothyroidism Hematologic History: Reports: None Oncologic (Cancer) History: Reports: None Dermatologic History: Reports: Other (See Below) Other Dermatologic History: toenail fungus - Infectious Disease History Infectious Disease History: Reports: Chicken Pox, Measles - Past Surgical History HEENT Surgical History: Reports: Laser Surgery Cardiovascular Surgical History: Reports: None Respiratory Surgical History: Reports: None GI Surgical History: Reports: Colonoscopy Endocrine Surgical History: Reports: Other (See Below) Other Endocrine Surgeries/Procedures: radioactive medication fro thyroid Musculoskeletal Surgical History: Reports: Hip Replacement Other Musculoskeletal Surgeries/Procedures:: recent Right hip replacement Social & Family History - Family History Family Medical History: Noncontributory HEENT: Reports: Sinusitis, Other (See Below) Other HEENT Family History: father Cardiac: Reports: [place] Other Cardiac Family History: father at 59 of an [place] Musculoskeletal: Reports: Back pain, Chronic, Other (See Below) Other Musculoskeletal Family History: mother Psychiatric: Reports: Other (See Below) Other Psychiatric Family History: sister Dermatologic: Reports: None - Caffeine Use Caffeine Use: Reports: None ED ROS GENERAL - Review of Systems Review Of Systems: See Below Constitutional: Reports: No Symptoms HEENT: Reports: No Symptoms Respiratory: Reports: Shortness of Breath. Denies: Wheezing, Cough Cardiovascular: Denies: Chest Pain, Dyspnea on Exertion, Lightheadedness, Orthopnea GI/Abdominal: Reports: No Symptoms : Reports: No Symptoms Musculoskeletal: Reports: No Symptoms Skin: Reports: No Symptoms Neurological: Reports: No Symptoms ED EXAM, GENERAL - Physical Exam Exam: See Below Exam Limited By: No Limitations General Appearance: Alert, No Apparent Distress, Anxious Eye Exam: Bilateral Eye: PERRL Ears: Normal External Exam, Normal TMs Nose: Normal Inspection Throat/Mouth: Normal Inspection, Normal Oropharynx Head: Atraumatic, Normocephalic Neck: Normal Inspection Respiratory/Chest: No Respiratory Distress, Lungs Clear, Normal Breath Sounds, No Accessory Muscle Use Cardiovascular: Regular Rate, Rhythm Back Exam: Full Range of Motion Extremities: Normal Range of Motion, Normal Capillary Refill Neurological: Alert, Oriented Psychiatric: Anxious Skin Exam: Warm, Dry, Intact Course - Re-Assessments/Exams Free Text/Narrative Re-Assessment/Exam: 04/19/20 13:37 This patient presents to the ED for evaluation of difficulty breathing. Her symptoms seem consistent with anxiety reaction. There is a history of anxiety in the past and they is on medications (Buspar). Patient feels improved after interventions as noted above in the ED. There is no sign at this point of a general medical problem causing anxiety related symptoms (PE, hyperthyroidism, cardiac ischemia, asthma exacerbation, aortic dissection, other metabolic derangement, infection, etc) although she does have a recent diagnosis of essential tremors. There are no signs of serious psychiatric decompensation warranting psychiatric hospitalization or 72 hold. No toxidrome to suggest a particular drug ingestion has been noted. Supportive outpatient management is therefore indicated. Departure - Departure Time of Disposition: 13:40 Disposition: Home, Self-Care 01 Condition: Good Clinical Impression: Anxiety - Discharge Information Instructions: Lorazepam tablets Referrals: PCP,None [Primary Care Provider] - Forms: ED Department Discharge Additional Instructions: Follow up with neurology when appointment is made-the clinic will contact you with this information. Should any new symptoms occur, follow up in clinic sooner. Fill provided prescription for Ativan at regular pharmacy today and take as directed. Call with any questions.
[2020-04-19 14:48] VITALS: BP 138/92; PULSE 95
== END 2020-04-19 13:30 | disposition home or self-care (01) ==
LOC: LB.ED 12:58
DX: F41.9 Anxiety disorder, unspecified (principal); E78.00 Pure hypercholesterolemia, unspecified; I10 Essential (primary) hypertension; E11.9 Type 2 diabetes mellitus without complications; E03.9 Hypothyroidism, unspecified; F31.9 Bipolar disorder, unspecified; Z79.899 Other long term (current) drug therapy; Z88.8 Allergy status to other drugs, medicaments and biological substances
CPT/HCPCS: 99284

== ENCOUNTER 2020-07-13 09:00 | Observation (INO) | payer MEDICAID ==
[2020-07-13] MEDS ORDERED: Sodium Chloride 0.9% 10 ML Syringe FLUSH PRN (10:33)
[2020-07-13] MEDS ORDERED: Sodium Chloride 0.9% with KCl 1,000 ML ONE ×2 (13:09→22:54)
[2020-07-13] MEDS: Acetaminophen 325 MG Tab PO PRN ×2 (13:58→21:07)
--- NOTE | 2020-07-13 14:29 | PCM.HP.2 ---
H&P History of Present Illness - General Date of Service: 07/13/20 Admit Problem/Dx: Admission Diagnosis/Problem Admission Diagnosis/Problem Hypokalemia Source of Information: Patient History Limitations: Reports: No Limitations - History of Present Illness Initial Comments - Free Text/Narative: This is a 64yo F here for severe hypokalemia. She has had previous electrolyte abnormalities in the past Onset of Symptoms: Reports: Unknown/Unsure Location: Reports: Generalized Severity: Mild Improves with: Reports: None Worsens with: Reports: None Associated Symptoms: Reports: Weakness Left Hip Pain Score (Numeric/FACES): 12 - Related Data Allergies/Adverse Reactions: Allergies Allergy/AdvReac Type Severity Reaction Status Date / Time aripiprazole [From Abilify] Allergy Dizziness Verified 04/19/20 15:12 metaxalone [From Skelaxin] Allergy Confusion Verified 04/19/20 15:12 Home Medications: Home Meds Exenatide [Byetta] 5 mcg SQ ACDINNER 03/25/17 [History] Insulin Glarg,Human.Rec.Analog [Lantus Solostar] 10 units INJECT BEDTIME 03/25/17 [History] Levothyroxine 112 mcg PO DAILY 03/25/17 [History] OLANZapine [Olanzapine] 30 mg PO BEDTIME 03/25/17 [History] Aspirin [Ecotrin] 81 mg PO BEDTIME 12/19/17 [History] Brimonidine Tartrate [Brimonidine Tartrate 0.2% Ophth Soln] 1 drop EYEBOTH TID 12/19/17 [History] Dorzolamide/Timolol [Cosopt 2%-0.5% Ophth Soln] 1 drop EYEBOTH BID 12/19/17 [History] Latanoprost 1 drop EYEBOTH QPM 12/19/17 [History] Cholecalciferol (Vitamin D3) [Vitamin D3] 2,000 unit PO BEDTIME 07/13/20 [History] DULoxetine HCl [Cymbalta] 3 tab PO BEDTIME 07/13/20 [History] LORazepam [Ativan] 0.75 mg PO TID 07/13/20 [History] Psyllium with Sucrose [Metamucil] 1 each PO BEDTIME 07/13/20 [History] Sodium Chloride 1 tab PO TIDAC 07/13/20 [History] atorvaSTATin [Lipitor] 10 mg PO BEDTIME 07/13/20 [History] methocarbamoL [Robaxin] 500 mg PO BEDTIME 07/13/20 [History] Past Medical History HEENT History: Reports: Glaucoma, Impaired Vision Cardiovascular History: Reports: High Cholesterol, Hypertension Respiratory History: Reports: None Gastrointestinal History: Reports: None Genitourinary History: Reports: None 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 , gravity : 2 Musculoskeletal History: Reports: Back Pain, Chronic Neurological History: Reports: None, Other (See Below) Other Neuro History: Hx of electricution 1977 Psychiatric History: Reports: Anxiety, Bipolar, Depression Endocrine/Metabolic History: Reports: Diabetes, Type II, Hyperthyroidism Hematologic History: Reports: None Oncologic (Cancer) History: Reports: None Dermatologic History: Reports: Other (See Below) Other Dermatologic History: toenail fungus - Infectious Disease History Infectious Disease History: Reports: Chicken Pox - Past Surgical History HEENT Surgical History: Reports: Laser Surgery Cardiovascular Surgical History: Reports: None Respiratory Surgical History: Reports: None GI Surgical History: Reports: Colonoscopy Endocrine Surgical History: Reports: Other (See Below) Other Endocrine Surgeries/Procedures: radioactive medication fro thyroid Musculoskeletal Surgical History: Reports: Hip Replacement Other Musculoskeletal Surgeries/Procedures:: recent Right hip replacement 03/21/17 Social & Family History - Family History Family Medical History: Noncontributory HEENT: Reports: Sinusitis, Other (See Below) Other HEENT Family History: father Cardiac: Reports: [place] Other Cardiac Family History: father at 59 of an [place] Musculoskeletal: Reports: Back pain, Chronic, Other (See Below) Other Musculoskeletal Family History: mother Psychiatric: Reports: Other (See Below) Other Psychiatric Family History: sister Dermatologic: Reports: None - Tobacco Use Smoking Status *Q: Former Smoker Used Tobacco, but Quit: Yes Month/Year Tobacco Last Used: 2019 Second Hand Smoke Exposure: No - Caffeine Use Caffeine Use: Reports: Coffee - Recreational Drug Use Recreational Drug Use: No H&P Review of Systems - Review of Systems: Review Of Systems: Comprehensive ROS is negative, except as noted in HPI. Exam - Exam Exam: See Below - Vital Signs Vital Signs: Last Vital Signs Temp 37.2 C 07/13/20 13:14 Pulse 74 07/13/20 13:14 Resp 18 07/13/20 13:14 BP 116/71 07/13/20 13:14 Pulse Ox 96 07/13/20 13:14 Weight: 74.843 kg - Exam General: Alert, Oriented, Cooperative HEENT: PERRLA, Conjunctiva Clear, EACs Clear Neck: Supple, Trachea Midline Lungs: Clear to Auscultation, Normal Respiratory Effort Cardiovascular: Regular Rate, Regular Rhythm GI/Abdominal Exam: Normal Bowel Sounds, Soft, Non-Tender Extremities: Normal Inspection Neuro Extensive - Motor, Sensory, Reflexes: Motor/Sensory Deficits (some general weakness) Psychiatric: Alert, Normal Affect, Normal Mood - Patient Data Lab Results Last 24 hrs: Laboratory Results - last 24 hr 07/13/20 Range/Units 09:10 Sodium 138 (136-145) mmol/L Potassium 2.7 L* D (3.5-5.1) mmol/L Chloride 99 (98-107) mmol/L Carbon Dioxide 32.9 H (21.0-32.0) mmol/L Anion Gap 8.8 (5.0-15.0) mmol/L BUN 5 L (8-26) mg/dL Creatinine 0.79 D (0.55-1.02) mg/dL Est Cr Clr Drug Dosing TNP Estimated GFR (MDRD) > 60 (>60) MLS/MIN BUN/Creatinine Ratio 6.3 (6-25) Glucose 135 H (74-100) mg/dL Calcium 8.3 L (8.5-10.1) mg/dL Result Diagrams: 07/14/20 09:50 Sepsis Event Note - Evaluation Sepsis Screening Result: No Definite Risk - Focused Exam Vital Signs: Vital Signs Temp Pulse Resp BP Pulse Ox 07/13/20 13:14 37.2 C 74 18 116/71 96 - Problem List (1) Hypokalemia SNOMED Code(s): 28214928 ICD Code: E87.6 - HYPOKALEMIA Status: Acute Priority: High (2) Weakness SNOMED Code(s): 76057050 ICD Code: R53.1 - WEAKNESS Status: Acute Priority: High Problem List Initiated/Reviewed/Updated: Yes Orders Last 24hrs: Active Orders 24 hr Category Date Time Status Patient Status [ADT] Routine ADT 07/13/20 10:34 Active Cardiac Monitoring [RC] Care 07/13/20 10:34 Active VTE/DVT Education [RC] Per Unit Routine Care 07/13/20 10:34 Active Vital Signs [RC] Q4H Care 07/13/20 10:34 Active Regular Diet [DIET] Diet 07/13/20 Lunch Ordered CULTURE MRSA SURVEY [RM] Routine Lab 07/13/20 13:24 Received Acetaminophen [TylenoL] Med 07/13/20 13:24 Active 650 mg PO Q6H PRN Potassium Chloride 40 meq Med 07/13/20 10:45 Active Sodium Chloride 0.9% [Normal Saline] 1,000 ml IV ASDIRECTED Sodium Chloride 0.9% [Saline Flush] Med 07/13/20 10:33 Active 10 ml FLUSH ASDIRECTED PRN Peripheral IV Insertion Adult [OM.PC] Routine Oth 07/13/20 10:33 Ordered Resuscitation Status Routine Resus Stat 07/13/20 10:33 Ordered Medication Orders Acetaminophen (Tylenol) 650 mg PO Q6H PRN PRN Reason: hip pain Last Admin: 07/13/20 13:58 Dose: 650 mg Documented by: AUBREY Potassium Chloride 40 meq/ (Sodium Chloride) 1,020 mls @ 125 mls/hr IV ASDIRECTED VINNY Last Admin: 07/13/20 13:17 Dose: 125 mls/hr Documented by: DORIS Sodium Chloride (Saline Flush) 10 ml FLUSH ASDIRECTED PRN PRN Reason: Keep Vein Open Assessment/Plan Comment:: Patient to be placed in observation for management of hypokalemia and symptoms. Recheck potassium as directed. - Mortality Measure Prognosis:: Good
[2020-07-13] MEDS ORDERED: traMADol 50 MG Tab ** OWN MED PO PRN (18:21)
[2020-07-13] MEDS ORDERED: LOVASTATIN 20 MG PO SCH (18:45)
[2020-07-13] MEDS ORDERED: CHOLECALCIFEROL 1000 UNIT PO SCH (20:00)
[2020-07-13] MEDS ORDERED: Psyllium Husk Powder Sugar Free 3.4 GM Packet PO SCH (20:00)
[2020-07-13] MEDS ORDERED: Latanoprost 0.005% Ophth Soln 2.5 ML Bottle ** OWN MED EYEBOTH SCH (20:00)
[2020-07-13] MEDS ORDERED: DULOXETINE 30 MG PO SCH (20:00)
[2020-07-13] MEDS ORDERED: atorvaSTATin 20 MG Tab PO SCH (20:00)
[2020-07-13] MEDS ORDERED: Insulin Glargine,Human Rec. Analog 100 Units/ML 3 ML Pen SUBCUT SCH (20:00)
[2020-07-13] MEDS ORDERED: METHOCARBAMOL 500 MG PO SCH (20:00)
[2020-07-13] MEDS ORDERED: BRIMONIDINE 0.2% EYEBOTH SCH (20:00)
[2020-07-13] MEDS ORDERED: OLANZAPINE 15 MG PO SCH (20:00)
[2020-07-13] MEDS ORDERED: ASPIRIN 81 MG PO SCH (20:00)
[2020-07-13] MEDS: LORazepam 0.5 MG Tab ** OWN MED PO SCH (20:16)
[2020-07-13] MEDS: DORZOLAMIDE EYEBOTH SCH (20:16)
[2020-07-13] MEDS: TIMOLOL EYEBOTH SCH (20:16)
[2020-07-13] MEDS ORDERED: Sodium Chloride 0.9% with KCl 1,000 ML IV SCH (23:30)
[2020-07-14] MEDS: Levothyroxine 112 MCG Tab PO SCH ×2 (06:11→07:01)
[2020-07-14] MEDS ORDERED: SODIUM CHLORIDE 1 GM PO SCH (07:00)
[2020-07-14] MEDS: TIMOLOL EYEBOTH SCH (07:39)
[2020-07-14] MEDS: DORZOLAMIDE EYEBOTH SCH (07:39)
[2020-07-14] MEDS: LORazepam 0.5 MG Tab ** OWN MED PO SCH (07:40)
[2020-07-14 09:25] VITALS: BP 168/85; PULSE 76
--- NOTE | 2020-07-14 11:54 | PCM.DCSUM1 ---
Discharge Summary - Discharge Data Discharge Date: 07/14/20 Discharge Disposition: Home, Self-Care 01 Condition: Good - Referral to Home Health Primary Care Physician: Craig Franklin MD - Patient Instructions Diet: Usual Diet as Tolerated Activity: As Tolerated - Discharge Plan Home Medications: Home Meds Exenatide [Byetta] 5 mcg SQ ACDINNER 03/25/17 [History] Insulin Glarg,Human.Rec.Analog [Lantus Solostar] 10 units INJECT BEDTIME 03/25/17 [History] Levothyroxine 112 mcg PO DAILY 03/25/17 [History] OLANZapine [Olanzapine] 30 mg PO BEDTIME 03/25/17 [History] Aspirin [Ecotrin] 81 mg PO BEDTIME 12/19/17 [History] Brimonidine Tartrate [Brimonidine Tartrate 0.2% Ophth Soln] 1 drop EYEBOTH TID 12/19/17 [History] Dorzolamide/Timolol [Cosopt 2%-0.5% Ophth Soln] 1 drop EYEBOTH BID 12/19/17 [History] Latanoprost 1 drop EYEBOTH QPM 12/19/17 [History] Cholecalciferol (Vitamin D3) [Vitamin D3] 2,000 unit PO BEDTIME 07/13/20 [History] DULoxetine HCl [Cymbalta] 3 tab PO BEDTIME 07/13/20 [History] LORazepam [Ativan] 0.75 mg PO TID 07/13/20 [History] Psyllium with Sucrose [Metamucil] 1 each PO BEDTIME 07/13/20 [History] Sodium Chloride 1 tab PO TIDAC 07/13/20 [History] atorvaSTATin [Lipitor] 10 mg PO BEDTIME 07/13/20 [History] methocarbamoL [Robaxin] 500 mg PO BEDTIME 07/13/20 [History] Patient Handouts: Hypokalemia, Potassium Content of Foods - Discharge Summary/Plan Comment DC Time >30 min.: No Discharge Summary/Plan Comment: Patient to be discharged and f/u labs in 3-4 wks and as routine. F/u if any symptoms for recheck of labs. F/u with PCP in the next week as needed. - General Info Date of Service: 07/14/20 Subjective Update: Patient denies any concerns or new symptoms today. She feels well. Functional Status: Reports: Tolerating Diet, Ambulating - Review of Systems General: Reports: No Symptoms HEENT: Reports: No Symptoms Pulmonary: Reports: No Symptoms Cardiovascular: Reports: No Symptoms Gastrointestinal: Reports: No Symptoms Genitourinary: Reports: No Symptoms Musculoskeletal: Reports: No Symptoms - Patient Data Vitals - Most Recent: Last Vital Signs Temp 36.2 C 07/14/20 09:00 Pulse 76 07/14/20 09:00 Resp 20 07/14/20 09:00 BP 168/85 H 07/14/20 09:00 Pulse Ox 92 L 07/14/20 09:00 Weight - Most Recent: 72.484 kg I&O - Last 24 hours: Intake & Output 07/13/20 07/14/20 07/14/20 22:59 06:59 14:59 Intake Total 1500 Balance 1500 Lab Results - Last 24 hrs: Laboratory Results - last 24 hr 07/13/20 07/13/20 07/14/20 Range/Units 16:09 19:22 09:50 Sodium 144 (136-145) mmol/L Potassium 3.5 D (3.5-5.1) mmol/L Chloride 107 (98-107) mmol/L Carbon Dioxide 29.3 (21.0-32.0) mmol/L Anion Gap 11.2 (5.0-15.0) mmol/L BUN 4 L (8-26) mg/dL Creatinine 0.77 (0.55-1.02) mg/dL Est Cr Clr Drug Dosing 68.16 mL/min Estimated GFR (MDRD) > 60 (>60) MLS/MIN BUN/Creatinine Ratio 5.2 L (6-25) Glucose 249 H D (74-100) mg/dL POC Glucose 68 L 103 (74-110) mg/dL Calcium 8.2 L (8.5-10.1) mg/dL PAT Results - Last 24 hrs: Microbiology 07/13/20 13:24 MRSA Surveillance Culture - Final Nares, Left NO MRSA ISOLATED Med Orders - Current: Current Medications Discontinued Medications Acetaminophen (Tylenol) 650 mg PO Q6H PRN PRN Reason: hip pain Last Admin: 07/13/20 21:07 Dose: 650 mg Documented by: Aspirin (Halfprin) 81 mg PO BEDTIME VINNY Last Admin: 07/13/20 20:17 Dose: 81 mg Documented by: Atorvastatin Calcium (Lipitor) 10 mg PO BEDTIME [facility] Brimonidine Tartrate (Alphagan 0.2% Ophth Soln) 0 ml EYEBOTH TID [facility] Last Admin: 07/13/20 20:15 Dose: 1 drop Documented by: Cholecalciferol (Vitamin D3) 50 mcg PO BEDTIME [facility] Last Admin: 07/13/20 20:18 Dose: 50 mcg Documented by: Dorzolamide/Timolol (Cosopt 2%-0.5% Ophth Soln) 0 ml EYEBOTH BID [facility] Last Admin: 07/14/20 07:39 Dose: 1 drop Documented by: Duloxetine HCl (Cymbalta) 90 mg PO BEDTIME [facility] Last Admin: 07/13/20 20:17 Dose: 90 mg Documented by: Potassium Chloride 40 meq/ (Sodium Chloride) 1,020 mls @ 125 mls/hr IV ASDIRECTED [facility] Last Admin: 07/13/20 23:02 Dose: 125 mls/hr Documented by: Potassium Chloride/Sodium Chloride (Normal Saline With 40 Meq Kcl) Confirm Administered Dose 1,000 mls @ as directed .ROUTE .ST-MED ONE Stop: 07/13/20 13:10 Last Admin: 07/13/20 13:16 Dose: Not Given Documented by: Potassium Chloride/Sodium Chloride (Normal Saline With 40 Meq Kcl) Confirm Administered Dose 1,000 mls @ as directed .ROUTE .STK-MED ONE Stop: 07/13/20 22:55 Last Admin: 07/13/20 23:03 Dose: Not Given Documented by: Potassium Chloride/Sodium Chloride (Normal Saline With 40 Meq Kcl) 1,000 mls @ 125 mls/hr IV ASDIRECTED [facility] Last Admin: 07/14/20 07:41 Dose: 125 mls/hr Documented by: Insulin Glargine (Lantus Solostar) 10 units SUBCUT BEDTIME [facility] Last Admin: 07/13/20 20:09 Dose: 10 unit Documented by: Latanoprost (Xalatan 0.005% Ophth Soln) 0 ml EYEBOTH QPM [facility] Last Admin: 07/13/20 19:33 Dose: 1 drop Documented by: Levothyroxine Sodium (Levothyroxine) 112 mcg PO DAILY [facility] Last Admin: 07/14/20 07:01 Dose: Not Given Documented by: Lorazepam (Ativan) 0.75 mg PO TID [facility] Last Admin: 07/14/20 07:40 Dose: 0.75 mg Documented by: Lovastatin (Mevacor) 20 mg PO WITHDINNER [facility] Last Admin: 07/13/20 20:15 Dose: 20 mg Documented by: Methocarbamol (Robaxin) 500 mg PO BEDTIME [facility] Last Admin: 07/13/20 20:17 Dose: 500 mg Documented by: Exenatide [Consuelo] (5mcg Own Med ) 5 mcg SQ ACDINNER [facility] Olanzapine 15mg Tab ( Own Med ) 30 mg PO BEDTIME [facility] Last Admin: 07/13/20 20:17 Dose: 30 mg Documented by: Psyllium Husk (Metamucil Sugar Free) 1 packet PO BEDTIME [facility] Last Admin: 07/13/20 20:18 Dose: Not Given Documented by: Sodium Chloride (Saline Flush) 10 ml FLUSH ASDIRECTED PRN PRN Reason: Keep Vein Open Last Admin: 07/14/20 11:00 Dose: 10 ml Documented by: Sodium Chloride (Sodium Chloride) 1 gm PO TIDAC [facility] Last Admin: 07/14/20 06:59 Dose: 1 gm Documented by: Tramadol HCl (Ultram) 50 mg PO Q4H PRN PRN Reason: HIP PAIN - Exam General: Reports: Alert, Oriented, Cooperative HEENT: Reports: Pupils Equal, Pupils Reactive, EOMI Neck: Reports: Supple Lungs: Reports: Clear to Auscultation, Normal Respiratory Effort Cardiovascular: Reports: Regular Rate, Regular Rhythm GI/Abdominal Exam: Normal Bowel Sounds Back Exam: Reports: Normal Inspection Extremities: Normal Inspection
[2020-07-14] MEDS ORDERED: EXENATIDE 5 MCG SQ SCH (17:00)
== END 2020-07-14 11:00 | disposition home or self-care (01) ==
LOC: LB.CLINIC 09:00 → LB.MS 12:34
PROVIDERS: ADMIT Family Medicine; ATTEND Family Medicine
DX: E87.6 Hypokalemia (principal); E78.00 Pure hypercholesterolemia, unspecified; I10 Essential (primary) hypertension; E11.9 Type 2 diabetes mellitus without complications; E05.90 Thyrotoxicosis, unspecified without thyrotoxic crisis or storm; F41.9 Anxiety disorder, unspecified; F31.9 Bipolar disorder, unspecified; Z88.8 Allergy status to other drugs, medicaments and biological substances; Z87.891 Personal history of nicotine dependence; Z79.899 Other long term (current) drug therapy; Z79.4 Long term (current) use of insulin; Z79.890 Hormone replacement therapy
CPT/HCPCS: 36415; 80048; 82962; 96360; 96361; 96372; A9270; G0378; J3480; J7030; 99217; 99218

== ENCOUNTER 2021-11-28 10:52 | Emergency (ER) | payer MEDICAID ==
[2021-11-28 12:14] VITALS: BP 129/86; PULSE 93
[2021-11-28] MEDS ORDERED: 50% Dextrose in Water 50 ML Syringe IVPUSH PRN ×2 (12:17→13:49)
[2021-11-28] MEDS ORDERED: Glucagon,Human Recombinant 1 MG Vial IM PRN ×2 (12:17→13:49)
[2021-11-28] MEDS: Sodium Chloride 0.9% 1,000 ML IV ONE (12:26)
[2021-11-28] MEDS: Insulin Regular, Human 100 Units/ML 3 ML Vial IV ONE ×2 (12:32→13:51)
[2021-11-28] MEDS: Albuterol/Ipratropium 3.0-0.5 MG/3 ML Neb Soln NEB ONE ×2 (13:15→13:53)
[2021-11-28] MEDS: Dexamethasone 4 MG/ML SDV ONE (13:49)
[2021-11-28] MEDS: Dexamethasone 4 MG/ML SDV IVPUSH ONE (13:53)
== END 2021-11-28 14:30 | disposition home or self-care (01) ==
LOC: LB.ED 10:52
DX: J45.901 Unspecified asthma with (acute) exacerbation (principal); E78.00 Pure hypercholesterolemia, unspecified; I10 Essential (primary) hypertension; E11.9 Type 2 diabetes mellitus without complications; E05.90 Thyrotoxicosis, unspecified without thyrotoxic crisis or storm; Z88.8 Allergy status to other drugs, medicaments and biological substances; Z79.4 Long term (current) use of insulin; Z79.82 Long term (current) use of aspirin; Z79.899 Other long term (current) drug therapy; Z20.822 Contact with and (suspected) exposure to COVID-19
CPT/HCPCS: 36415; 71045; 80053; 82947; 83605; 83880; 85025; 87635; 87804; 93005; 96374; 99285; J1100; J7030; J7620-GY; U0002

== ENCOUNTER 2022-01-04 07:58 | Day surgery (SDC) | payer MEDICAID ==
[~2022-01-04 07:58] MED LIST changes: -Sodium Chloride 0.9% 10 ML Syringe FLUSH PRN
[2022-01-04] MEDS ORDERED: Propofol 1,000 MG/100 ML SDV ONE (09:30)
[2022-01-04 09:58] VITALS: BP 108/63; PULSE 67
== END 2022-01-04 10:35 | disposition home or self-care (01) ==
LOC: LB.SDS 07:58
PROVIDERS: ATTEND Surgery
DX: Z12.11 Encounter for screening for malignant neoplasm of colon (principal); K57.30 Diverticulosis of large intestine without perforation or abscess without bleeding; E05.90 Thyrotoxicosis, unspecified without thyrotoxic crisis or storm; E11.9 Type 2 diabetes mellitus without complications; Z86.010 Personal history of colon polyps
CPT/HCPCS: 82947; J2704; J7030

== ENCOUNTER 2024-05-30 13:23 | Emergency (ER) | payer MEDICARE ==
[2024-05-30 13:31] VITALS: BP 158/82; PULSE 100
== END 2024-05-30 14:55 | disposition home or self-care (01) ==
LOC: LB.ED 13:23
DX: S82.431A Displaced oblique fracture of shaft of right fibula, initial encounter for closed fracture (principal); I10 Essential (primary) hypertension; E78.00 Pure hypercholesterolemia, unspecified; E11.9 Type 2 diabetes mellitus without complications; E03.9 Hypothyroidism, unspecified; Z79.890 Hormone replacement therapy; Z79.899 Other long term (current) drug therapy; Z79.82 Long term (current) use of aspirin; Z79.4 Long term (current) use of insulin; X50.0XXA Overexertion from strenuous movement or load, initial encounter; Y92.000 Kitchen of unspecified non-institutional (private) residence as the place of occurrence of the external cause
CPT/HCPCS: 73610-RT; 99283

== ENCOUNTER 2025-09-25 19:30 | Observation (INO) | payer MEDICAID ==
[2025-09-25] MEDS: Acetaminophen/oxyCODONE 325-5 MG Tab PO PRN (20:35)
[2025-09-25 21:10] LABS: BASOPHILS ABSOLUTE AUTO 0.02 K/uL (0.02-0.10); BASOPHILS PERCENT AUTO 0.2 % (0.0-0.5); EOSINOPHILS ABSOLUTE AUTO 0.09 K/uL (0.04-0.40); EOSINOPHILS PERCENT AUTO 0.7 % (1.0-5.0); LYMPHOCYTES ABSOLUTE AUTO 1.18 K/uL (1.50-4.00); LYMPHOCYTES PERCENT AUTO 9.1 % (20.0-40.0); MEAN PLATELET VOLUME 9.2 fL (6.0-10.0); MONOCYTES ABSOLUTE AUTO 1.66 K/uL (0.20-0.80); MONOCYTES PERCENT AUTO 12.8 % (3.0-10.0); NEUTROPHILS ABSOLUTE AUTO 10.06 K/uL (2.00-7.50); NEUTROPHILS PERCENT AUTO 77.2 % (45.0-70.0); PLATELET COUNT,PLT 274 K/uL (150-500); RED BLOOD CELL COUNT 3.31 M/uL (3.80-5.80); RED CELL DISTRIBUTION WIDTH 14.6 % (11.0-16.0); WHITE BLOOD CELL COUNT,WBC 13.0 K/uL (4.0-11.0)
[2025-09-25 21:25] LABS: A/G RATIO 0.8 (0.8-2.0); ALANINE AMINOTRANSFERASE,ALT 17.0 U/L (12-78); ASPARTATE AMNIOTRANSFERASE,AST 17.0 U/L (15-37); BILIRUBIN TOTAL 0.6 mg/dL (0.0-1.0); BLOOD UREA NITROGEN,BUN 17.0 mg/dL (8-26); CARBON DIOXIDE,CO2 31.5 mmol/L (21.0-32.0); CHLORIDE,CL 102.0 mmol/L (98-107); CREATININE 0.84 mg/dL (0.55-1.02); EST CRCL DRUG DOSING (CG) 56.12 mL/min; ESTIMATED GFR 76.0 mL/min (>60); GLUCOSE RANDOM 176.0 mg/dL (74-100); POTASSIUM,K 4.8 mmol/L (3.5-5.1); PROTEIN TOTAL,TP 5.3 g/dL (6.4-8.2); SODIUM,NA 138.0 mmol/L (136-145)
[2025-09-25] MEDS ORDERED: 50% Dextrose in Water 50 ML Syringe IVPUSH PRN (22:54)
[2025-09-25] MEDS ORDERED: Ondansetron 4 MG Tab.DIS PO PRN (22:54)
[2025-09-26] MEDS: Sennosides/Docusate Sodium 50-8.6 MG Tab PO PRN (00:12)
[2025-09-26] MEDS: METFORMIN 500 MG PO SCH (00:14)
[2025-09-26] MEDS: LATANOPROST 0.005% EYEBOTH SCH (00:34)
[2025-09-26] MEDS: INSULIN LISPRO 100 UNIT/ML SUBCUT SCH (08:03)
[2025-09-26] MEDS: Cholecalciferol (Vitamin D3) 2,000 Unit Cap PO SCH (08:16)
[2025-09-27] MEDS: Cholecalciferol (Vitamin D3) 2,000 Unit Cap PO SCH (07:30)
[2025-09-27] MEDS: METFORMIN 500 MG PO SCH (07:32)
[2025-09-28] MEDS ORDERED: LATANOPROST 0.005% EYEBOTH SCH (09:49)
[2025-09-28 11:40] VITALS: BP 131/71; PULSE 77
== END 2025-09-28 13:08 | disposition home or self-care (01) ==
LOC: LB.ED 19:30 → LB.MS 21:30
PROVIDERS: ADMIT Surgery; ATTEND Surgery
DX: G89.18 Other acute postprocedural pain (principal); M25.552 Pain in left hip; I10 Essential (primary) hypertension; E11.9 Type 2 diabetes mellitus without complications; E78.00 Pure hypercholesterolemia, unspecified; Z96.642 Presence of left artificial hip joint; Z79.4 Long term (current) use of insulin; Z79.84 Long term (current) use of oral hypoglycemic drugs; Z79.899 Other long term (current) drug therapy
CPT/HCPCS: 36415; 80053; 82947; 85025; 97110-GP; 97161-GP; 99284; A9270-GY; G0378

== ENCOUNTER 2025-09-28 13:23 | Inpatient (IN) | payer SELFPAY ==
[2025-09-28] MEDS ORDERED: Non-Formulary Medication 1 Each (Acetaminophen [Acetaminophen] 325 MG Tablet) PO PRN (13:28)
[2025-09-28] MEDS ORDERED: Sennosides/Docusate Sodium 50-8.6 MG Tab PO PRN (13:28)
[2025-09-28] MEDS ORDERED: Non-Formulary Medication 1 Each (Hydroxyzine Hcl [Hydroxyzine] 25 MG Tablet) PO PRN (13:28)
[2025-09-28] MEDS ORDERED: Non-Formulary Medication 1 Each (Polyethylene Glycol 3350 [Miralax] 17 GM Packet) PO PRN (13:28)
[2025-09-28] MEDS ORDERED: Non-Formulary Medication 1 Each (Ondansetron [Zofran Odt] 4 MG Tab.Dis) PO PRN (13:28)
[2025-09-28] MEDS ORDERED: Non-Formulary Medication 1 Each (Lorazepam [Ativan] 1 MG Tablet) PO SCH (14:00)
[2025-09-28] MEDS ORDERED: TIZANIDINE 4 MG PO PRN (14:13)
[2025-09-28] MEDS: BRIMONIDINE TARTRATE EYEBOTH SCH (16:52)
[2025-09-28] MEDS ORDERED: Non-Formulary Medication 1 Each (Metformin [Glucophage] 500 MG Tablet) PO SCH ×2 (18:00→20:00)
[2025-09-28] MEDS ORDERED: [UNRECOGNIZED DRUG - OTHER] SUBCUT SCH (20:00)
[2025-09-28] MEDS ORDERED: INSULN SUBCUT SCH (20:00)
[2025-09-28] MEDS ORDERED: INSULIN LISPRO 100 UNIT/ML SUBCUT SCH (20:00)
[2025-09-28] MEDS: TIMOLOL EYEBOTH SCH (20:21)
[2025-09-28] MEDS: DORZOLAMIDE EYEBOTH SCH (20:21)
[2025-09-28] MEDS: Non-Formulary Medication 1 Each (Olanzapine [Olanzapine] 15 MG Tablet) PO SCH (20:27)
[2025-09-28] MEDS: Non-Formulary Medication 1 Each (Latanoprost [Latanoprost] 2.5 ML Drops) EYEBOTH SCH (20:30)
[2025-09-29] MEDS: Non-Formulary Medication 1 Each (Levothyroxine [Levothyroxine] 112 MCG Tablet) PO SCH (05:45)
[2025-09-29] MEDS: Cholecalciferol (Vitamin D3) 2,000 Unit Cap PO SCH (07:27)
[2025-09-29] MEDS: Lactobacillus Acidophilus/Lactobacillus Sporogenes (Probiotic) Tab PO SCH (07:28)
[2025-09-29] MEDS: [UNRECOGNIZED DRUG - OTHER] SUBCUT SCH (07:59)
[2025-09-29] MEDS: INSULN SUBCUT SCH (07:59)
[2025-09-29] MEDS: INSULIN LISPRO 100 UNIT/ML SUBCUT SCH (07:59)
[2025-09-29] MEDS ORDERED: Non-Formulary Medication 1 Each (Cholecalciferol (Vitamin D3) [Vitamin D3] 2,000 UNIT Cap) PO SCH (08:00)
[2025-09-29] MEDS ORDERED: Non-Formulary Medication 1 Each (Levothyroxine [Levothyroxine] 112 MCG Tablet) PO SCH (08:00)
[2025-09-29] MEDS ORDERED: Non-Formulary Medication 1 Each (Lactobacillus Acidophilus [Acidophilus] 1 EACH Cap) PO SCH (08:00)
[2025-09-29 09:00] VITALS: BP 158/90; PULSE 91
== END 2025-09-29 13:13 | disposition home or self-care (01) | DRG 951 ==
LOC: LB.MS 13:24
PROVIDERS: ADMIT Surgery; ATTEND Surgery
DX: Z75.5 Holiday relief care (principal)
CPT/HCPCS: 82947; A9270-GY

== ENCOUNTER 2025-10-10 14:49 | Emergency (ER) | payer MEDICARE ==
[2025-10-10] MEDS: Ketamine 200 MG/20 ML MDV IVPUSH ONE (15:11)
[2025-10-10] MEDS: Succinylcholine 200 MG/10 ML MDV IVPUSH ONE (15:12)
[2025-10-10] MEDS: fentaNYL 100 MCG/2 ML SDV IVPUSH ONE ×3 (15:25→15:56)
[2025-10-10] MEDS: Midazolam 1 MG/ML 2 ML SDV IVPUSH ONE ×3 (15:25→15:55)
[2025-10-10] MEDS ORDERED: Sodium Chloride 0.9% 10 ML Syringe FLUSH PRN (15:42)
[2025-10-10 15:47] LABS: BASOPHILS ABSOLUTE AUTO 0.03 K/uL (0.02-0.10); BASOPHILS PERCENT AUTO 0.2 % (0.0-0.5); EOSINOPHILS ABSOLUTE AUTO 0.00 K/uL (0.04-0.40); EOSINOPHILS PERCENT AUTO 0.0 % (1.0-5.0); LYMPHOCYTES ABSOLUTE AUTO 0.79 K/uL (1.50-4.00); LYMPHOCYTES PERCENT AUTO 5.3 % (20.0-40.0); MEAN PLATELET VOLUME 9.5 fL (6.0-10.0); MONOCYTES ABSOLUTE AUTO 0.78 K/uL (0.20-0.80); MONOCYTES PERCENT AUTO 5.2 % (3.0-10.0); NEUTROPHILS ABSOLUTE AUTO 13.34 K/uL (2.00-7.50); NEUTROPHILS PERCENT AUTO 89.3 % (45.0-70.0); PLATELET COUNT,PLT 385 K/uL (150-500); RED BLOOD CELL COUNT 3.85 M/uL (3.80-5.80); RED CELL DISTRIBUTION WIDTH 15.4 % (11.0-16.0); WHITE BLOOD CELL COUNT,WBC 14.9 K/uL (4.0-11.0)
[2025-10-10 15:50] LABS: A/G RATIO 1.0 (0.8-2.0); ALANINE AMINOTRANSFERASE,ALT 17 U/L (12-78); ASPARTATE AMNIOTRANSFERASE,AST 13 U/L (15-37); BILIRUBIN TOTAL 0.9 mg/dL (0.0-1.0); BLOOD UREA NITROGEN,BUN 18 mg/dL (8-26); CARBON DIOXIDE,CO2 32.6 mmol/L (21.0-32.0); CHLORIDE,CL 98 mmol/L (98-107); CREATININE 0.72 mg/dL (0.55-1.02); ESTIMATED GFR 92 mL/min (>60); GLUCOSE RANDOM 254 mg/dL (74-100); POTASSIUM,K 4.1 mmol/L (3.5-5.1); PROTEIN TOTAL,TP 5.9 g/dL (6.4-8.2); SODIUM,NA 137 mmol/L (136-145); TROPONIN I HIGH SENSITIVITY 27.4 pg/ml (<=60.4)
[2025-10-10 15:52] LABS: ETHANOL BLOOD MEDICAL < 3.0 mg/dL (<3.0)
[2025-10-10 16:00] LABS: INR 0.9 (1.0-3.5); PTT,PARTIAL THROMBOPLSTIN TIME 21.5 SECONDS (24.4-33.2)
[2025-10-10] MEDS: fentaNYL 100 MCG/2 ML SDV IVPUSH SCH (16:11)
[2025-10-10] MEDS: propofoL 1,000 MG/100 ML 100 ML IV SCH (16:36)
[2025-10-10 16:45] LABS: AMPHETAMINES SCREEN, URINE NEGATIVE (NEGATIVE)
[2025-10-10 16:46] LABS: METHADONE SCREEN, URINE NEGATIVE (NEGATIVE); METHAMPHETAMINES SCREEN, URINE NEGATIVE (NEGATIVE); OXYCODONE SCREEN,URINE NEGATIVE (NEGATIVE); THC SCREEN,URINE 50 NG/ML NEGATIVE (NEGATIVE)
[2025-10-10 17:29] LABS: BICARBONATE,ARTERIAL 26.0 mmol/L (22-26); O2 SATURATION ARTERIAL 97.3 % (95-98); PCO2 ARTERIAL 54.7 mmHg (35-45); PO2 ARTERIAL 107.7 mmHg (80-105)
[2025-10-10 17:30] LABS: BASE EXCESS ARTERIAL -0.7 (-2-2)
[2025-10-10] MEDS: Midazolam 1 MG/ML 2 ML SDV ONE (18:43)
[2025-10-10 21:27] VITALS: BP 137/65; PULSE 91
== END 2025-10-10 18:59 ==
LOC: LB.ED 14:49
DX: J18.9 Pneumonia, unspecified organism (principal); E11.9 Type 2 diabetes mellitus without complications; I10 Essential (primary) hypertension; E78.00 Pure hypercholesterolemia, unspecified; M19.90 Unspecified osteoarthritis, unspecified site; Z88.8 Allergy status to other drugs, medicaments and biological substances; Z79.4 Long term (current) use of insulin; Z79.82 Long term (current) use of aspirin; Z79.899 Other long term (current) drug therapy
CPT/HCPCS: 31500; 36415; 36600; 70450; 71045; 71250; 80053; 80143; 80179; 80307; 82803; 82947; 83605; 84484; 85025; 85610; 85730; 93005; 96361; 96365; 96367; 96368; 96375; 96376; 99285-25; A0425; J0330; J2250; J2543; J2704; J3010; J3373; J3490; J7030; J7040